=== PATIENT | male | born 1960 | race Caucasian/White ===

== ENCOUNTER 2016-12-17 05:59 | Day surgery (SDC) | payer OTHER ==
[2016-12-17] MEDS ORDERED: Lactated Ringers 1,000 ML IV ONE (06:38)
[2016-12-17] MEDS ORDERED: Lactated Ringers 1,000 ML IV SCH (07:00)
[2016-12-17] MEDS ORDERED: DIPRIVAN 200 MG/20 ML IV ONE (08:00)
[2016-12-17] MEDS ORDERED: Ketamine HCl 50 MG/ML IV ONE (08:00)
--- NOTE | 2016-12-17 08:20 | OP ---
SURGERY DATE/TIME: 12/17/2016 0700 PREOPERATIVE DIAGNOSIS: Weight loss. POSTOPERATIVE DIAGNOSES: 1) Mild duodenitis. 2) Normal colon. PROCEDURES: 1) EGD. 2) Colonoscopy. SURGEON: Frederick Hernandez M.D. ANESTHESIA: MAC by Vipin Coello CRNA. ESTIMATED BLOOD LOSS: Minimal. SPECIMENS: Two cold forceps biopsies from the duodenum. DESCRIPTION OF PROCEDURE: After informed written consent was obtained, the patient was taken to the endoscopy suite. A bite block was inserted. He underwent monitored anesthesia. The endoscope was then inserted into the posterior oropharynx and under direct visualization the esophagus was traversed. Esophageal mucosa was normal. Upon entering the stomach the gastroesophageal junction and gastric mucosa had a normal appearance free of any lesions or defects. The pylorus was traversed. The first and second portions of the duodenum showed mild to moderate duodenitis-type changes but no focal ulcerations or bleeding. Two patient accounting representative samples were taken with cold forceps and sent for testing. Upon withdrawal from the pylorus again the gastric mucosa appeared normal. There were no lesions or defects in the gastric antrum. Retroflexion performed and showed no abnormalities in the upper portion of the stomach. Upon withdrawal the gastroesophageal junction and esophageal mucosa again appeared to within normal limits. The scope was removed and the scopes were switched. A digital rectal exam showed normal sphincter tone and no internal lesions. The scope was inserted in the rectum and sequentially the entire colonic mucosa was traversed. The level of cecum was reached and verified with direct visualization of ileocecal valve. Upon withdrawal careful mucosal inspection revealed no obvious abnormalities or defects. Prep was noted to be good. Prior to withdrawal retroflexion was performed which showed no internal lesions. The scope was removed and the patient was transferred to the recovery room in excellent condition. I have advised him to get [id number] omeprazole 20 mg daily pending biopsy results and avoid NSAID's and aspirin at this time.
[2016-12-17 08:34] VITALS: BP 132/94; PULSE 57; O2SAT 98
== END 2016-12-17 08:35 | disposition home or self-care (01) ==
LOC: SDC 05:59
PROVIDERS: ATTEND Family Medicine
PROC: 0DB98ZX Excision of Duodenum, Via Natural or Artificial Opening Endoscopic, Diagnostic (ICD-10-PCS; principal; 2016-12-17)
PROC: 0DJD8ZZ Inspection of Lower Intestinal Tract, Via Natural or Artificial Opening Endoscopic (ICD-10-PCS; 2016-12-17)
DX: K29.80 Duodenitis without bleeding (principal)
CPT/HCPCS: 00740; 00810; 36415; 88305; J2704

== ENCOUNTER 2020-02-21 14:56 | Emergency (ER) | payer BC, OTHER ==
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
[2020-02-21] MEDS ORDERED: XYLOCAINE 1% HCL 20 ML MDV ONE (15:15)
[2020-02-21 15:16] VITALS: O2SAT 98
[2020-02-21] MEDS: BACIGUENT PACKET TP ONE (15:34)
[2020-02-21] MEDS: XYLOCAINE 1% HCL 20 ML MDV IJ ONE (15:35)
[2020-02-21] MEDS ORDERED: Adacel Vial IM ONE (15:37)
[2020-02-21] MEDS: Adacel Vial IM ONE (15:40)
--- NOTE | 2020-02-21 16:10 | XRAY ---
Indication: Forehead laceration following injury. Multiple contiguous axial images obtained through the head without contrast. Comparison: None Normal appearing brain parenchyma, ventricles, and bony calvarium. Visualized paranasal sinuses and mastoid air cells are clear. Impression: Normal CT head without contrast exam.
[2020-02-21 16:28] VITALS: BP 146/87; PULSE 62
== END 2020-02-21 16:27 | disposition home or self-care (01) ==
LOC: ED 14:56
DX: S01.81XA Laceration without foreign body of other part of head, initial encounter (principal); W20.8XXA Other cause of strike by thrown, projected or falling object, initial encounter; Y93.89 Activity, other specified; Y92.64 Mine or pit as the place of occurrence of the external cause; Y99.0 Civilian activity done for income or pay; R42 Dizziness and giddiness; R51 Headache
CPT/HCPCS: 12011; 70450; 90471; 90715; 99284; A9270-GY